=== PATIENT | female | born 1960 | race Caucasian/White ===

== ENCOUNTER 2017-08-07 17:02 | Emergency (ER) | payer OTHER, SELFPAY ==
[2017-08-07] MEDS ORDERED: Tobramycin Sulfate 0.3% Ophth Susp 5 ml Bottle ONE (18:02)
[2017-08-07] MEDS ORDERED: Proparacaine 0.5% Opth 15 ML BOT ONE (18:03)
== END 2017-08-07 18:16 | disposition home or self-care (01) ==
LOC: MADERS 17:02
DX: T15.01XA Foreign body in cornea, right eye, initial encounter (principal); H11.31 Conjunctival hemorrhage, right eye; J44.9 Chronic obstructive pulmonary disease, unspecified; I10 Essential (primary) hypertension; Z87.891 Personal history of nicotine dependence; Z86.73 Personal history of transient ischemic attack (TIA), and cerebral infarction without residual deficits; Z79.899 Other long term (current) drug therapy
CPT/HCPCS: 99283

== ENCOUNTER 2017-09-11 15:09 | Emergency (ER) | payer SELFPAY ==
[2017-09-11 16:27] LABS: #Eosinphils 0.2 thou/uL (0.0-0.7); #Lymphocytes 0.8 thou/uL (1.20-3.40); #Monocytes 0.3 thou/uL (0.11-0.59); #Neutrophils 2.2 thou/uL (1.40-6.50); %Basophils 0.9 % (0.0-1.0); %Eosinophils 4.9 % (0.0-10.0); %Monocytes 8.9 % (0.0-10.0); %Neutrophils 62.3 % (42.0-75.0); Hemoglobin 13.1 g/dL (12.0-16.0); Mean Corpuscular HGB CONC 33.8 g/dL (32.0-36.0); Mean Corpuscular Hemoglobin 30.2 pg (27.0-31.0); Mean Corpuscular Volume 89.3 fl (81.0-99.0); Platelet Count 145 thou/uL (130-400); RBC Distribution Width 11.8 % (11.5-14.5); Red Blood Cell (RBC) Count 4.33 mill/uL (4.20-5.40); White Blood Cell (WBC) Count 3.6 thou/uL (4.8-10.8)
[2017-09-11 16:41] LABS: ALT (SGPT) 26 U/L (8-55); AST (SGOT) 21 U/L (5-34); Albumin 3.5 g/dL (3.5-5.0); Alkaline Phosphatase 109 U/L (40-150); Anion Gap 14 mmol/L (10-20); BUN (Urea Nitrogen) 17 mg/dL (9.8-20.1); Bilirubin, Total 0.5 mg/dL (0.2-1.2); Calc. Creatinine Clearance 0 mL/min (70-130); Calcium 9.1 mg/dL (7.8-10.44); Carbon Dioxide 28 mmol/L (22-29); Chloride 106 mmol/L (98-107); Estimated GFR-MDRD 65; Globulin 3.4 g/dL (2.4-3.5); Glucose 93 mg/dL (70-105); Potassium 3.6 mmol/L (3.5-5.1); Protein, Total 6.9 g/dL (6.0-8.3); Sodium 144 mmol/L (136-145)
[2017-09-11] MEDS ORDERED: Acetaminophen 500 MG TAB ONE (17:29)
--- NOTE | 2017-09-11 17:39 | RAD ---
CHEST TWO VIEWS 09/11/17 HISTORY: Chest pain. FINDINGS: The cardiac silhouette and pulmonary vasculature are unremarkable. Mediastinum is midline. There is n o confluent air space consolidation, pneumothorax or pleural fluid apparent. IMPRESSION: No active cardiopulmonary abnormalities are demonstrated. POS: [facility]
[2017-09-11] MEDS ORDERED: Oseltamivir 75 MG CAP ONE (17:48)
[2017-09-11] MEDS ORDERED: cefTRIAXone\\ROCEPHIN 1 GM VIAL ONE (17:48)
[2017-09-11] MEDS ORDERED: Ibuprofen 800 MG TAB ONE (17:48)
[2017-09-11] MEDS ORDERED: Lidocaine 1% 20 ML MDV ONE (17:48)
[2017-09-11] MEDS ORDERED: Benzonatate 100 MG CAP ONE (17:48)
== END 2017-09-11 18:00 | disposition home or self-care (01) ==
LOC: MADERS 15:09
DX: J44.1 Chronic obstructive pulmonary disease with (acute) exacerbation (principal); J10.1 Influenza due to other identified influenza virus with other respiratory manifestations; I10 Essential (primary) hypertension; F17.210 Nicotine dependence, cigarettes, uncomplicated; Z86.73 Personal history of transient ischemic attack (TIA), and cerebral infarction without residual deficits; Z79.899 Other long term (current) drug therapy
CPT/HCPCS: 36415; 71020; 80053; 85025; 96372; J0696; J2001; J7620

== ENCOUNTER 2020-01-05 21:12 | Emergency (ER) | payer MEDICARE, MEDICAID ==
[~2020-01-05 21:12] MED LIST: Iopamidol 370 76% 125 ML VIAL FS ONE; Sodium Chloride 0.9% 100 ML BAG ONE
--- NOTE | 2020-01-05 21:37 | RAD ---
EXAM: Single view of the chest HISTORY: Chest pain COMPARISON: 07/23/2016 FINDINGS: Single view of the chest shows a normal sized cardiomediastinal silhouette. Atheroscleroti c calcifications are seen in the aorta. There is no evidence of consolidation, mass, or pleural effusion. The bones are unremarkable. IMPRESSION: No evidence of acute cardiopulmonary disease
[2020-01-05 21:43] LABS: #Eosinphils 0.2 thou/uL (0.0-0.7); #Lymphocytes 1.9 thou/uL (1.20-3.40); #Monocytes 0.3 thou/uL (0.11-0.59); #Neutrophils 4.5 thou/uL (1.40-6.50); %Basophils 0.5 % (0.0-1.0); %Eosinophils 3.4 % (0.0-10.0); %Monocytes 4.9 % (0.0-10.0); %Neutrophils 64.2 % (42.0-75.0); Hemoglobin 14.9 g/dL (12.0-16.0); Mean Corpuscular HGB CONC 32.8 g/dL (32.0-36.0); Mean Corpuscular Hemoglobin 29.7 pg (27.0-31.0); Mean Corpuscular Volume 90.3 fL (78.0-98.0); Mean Platelet Volume 10.5 fL (7.4-10.4); Platelet Count 148 thou/uL (130-400); RBC Distribution Width 11.4 % (11.5-14.5); Red Blood Cell (RBC) Count 5.04 mill/uL (4.20-5.40); White Blood Cell (WBC) Count 6.9 thou/uL (4.8-10.8)
[2020-01-05 21:58] LABS: ALT (SGPT) 29 U/L (8-55); AST (SGOT) 13 U/L (5-34); Alkaline Phosphatase 111 U/L (40-110); Anion Gap 16 mmol/L (10-20); BUN (Urea Nitrogen) 18 mg/dL (9.8-20.1); Bilirubin, Total 0.5 mg/dL (0.2-1.2); Calc. Creatinine Clearance 0 mL/min (70-130); Calcium 9.5 mg/dL (7.8-10.44); Carbon Dioxide 25 mmol/L (22-29); Chloride 105 mmol/L (98-107); Estimated GFR-MDRD 63; Globulin 3.4 g/dL (2.4-3.5); Glucose 83 mg/dL (70-105); Lipase 8 U/L (8-78); Potassium 3.3 mmol/L (3.5-5.1); Protein, Total 7.4 g/dL (6.0-8.3); Sodium 143 mmol/L (136-145)
--- NOTE | 2020-01-05 23:37 | CT ---
EXAM: CTA of the chest HISTORY: Chest pain COMPARISON: None TECHNIQUE: Multiple contiguous axial images were obtained a CTA of the chest with contrast per pulmon erica embolism protocol. 3-D oblique MIP reformats and direct coronal reformats were performed. FINDINGS: HEART: Normal in size without focal cardiac abnormality. PULMONARY ARTERIES: Normal in caliber without filling defects to suggest pulmonary emboli. MEDIASTINUM: No hilar or mediastinal lymphadenopathy. LUNGS: No focal infiltrates or masses. PLEURAL SPACE: No pleural effusion or pneumothorax. CHEST WALL SOFT TISSUES: Unremarkable VISUALIZED OSSEOUS STRUCTURES: Degenerative changes are seen in the spine. VISUALIZED SUBDIAPHRAGMATIC STRUCTURES: Status post cholecystectomy. There is hyperplasia of the left adrenal gland with a 2.2 cm left adrenal mass. Atherosclerotic calcifications in the aorta. Calcified granulomas in the spleen. IMPRESSION: 1. No evidence of pulmonary thromboembolism 2. Left adrenal mass
== END 2020-01-06 02:16 | disposition short-term general hospital (02) ==
LOC: MADERS 21:12
DX: R07.9 Chest pain, unspecified (principal); J44.9 Chronic obstructive pulmonary disease, unspecified; I10 Essential (primary) hypertension; Z86.73 Personal history of transient ischemic attack (TIA), and cerebral infarction without residual deficits; Z87.891 Personal history of nicotine dependence
CPT/HCPCS: 71045; 71275; 80053; 83690; 83880; 84484; 85025; 85379; 93005; J3490; Q9967

== ENCOUNTER 2020-06-17 14:55 | Outpatient (CLI) | payer MEDICARE, MEDICAID ==
[~2020-06-17 14:55] MED LIST changes: +Iopamidol 370 76% 100 ML VIAL ONE; -Iopamidol 370 76% 125 ML VIAL FS ONE; -Sodium Chloride 0.9% 100 ML BAG ONE
--- NOTE | 2020-06-17 16:15 | CT ---
CT OF THE ABDOMEN WITH AND WITHOUT CONTRAST: 06/17/20 INDICATIONS: Left adrenal mass. COMPARISON: Prior CT of the abdomen and pelvis dated 12/19/13. FINDINGS: There is a 1.8 cm oval mass lesion off the lateral limb of the left adrenal gland on image 20 of seri es 2 that has a precontrast Hounsfield characteristics of -0.910. The internal Hounsfield unit at the 60 second delay was 63.7 Hounsfield units. The delayed phase images, the mean internal density was 1 1.3 Hounsfield units. The absolute washout was 81.1%. the relative washout was 82.3%. The gallbladder is surgically absent. There are calcified granuloma within the spleen. The right adre nal gland is normal appearing. The pancreas appears within normal limits. No free fluid or enlarged l ymph nodes are evident. There are moderate calcifications involving the abdominal aorta. The visualiz ed small and large bowel are unremarkable appearing. There is mild scattered degenerative and osteoar thritic change. IMPRESSION: 1. Precontrast Hounsfield unit of below 10 with absolute washout of 60% or higher and a relative washout of 40% or higher is consistent with an adenoma. 2. Cholecystectomy. 3. Findings of prior granulomatous disease. 4. Moderate calcifications of the abdominal aorta. POS: [facility]
== END 2020-06-17 14:56 | disposition home or self-care (01) ==
LOC: MADRAD 14:55
PROVIDERS: ATTEND Family Medicine
DX: E27.8 Other specified disorders of adrenal gland (principal); I70.0 Atherosclerosis of aorta; Z90.49 Acquired absence of other specified parts of digestive tract
CPT/HCPCS: 74170; Q9967

== ENCOUNTER 2020-10-23 18:58 | Emergency (ER) | payer MEDICARE, MEDICAID ==
[2020-10-23 19:46] LABS: Bilirubin Negative (Negative); Blood, Urine Trace (Negative); Clarity Hazy (Clear); Glucose, Urine (Dipstick) Negative (Negative); Ketone, Urine Negative (Negative); Leukocyte Negative (Negative); Nitrite Negative (Negative); Protein, Urine (Dipstick) Negative (Neg-Trace); Specific Gravity, Urine 1.025 (1.005-1.030); pH, Urine 6.5 (5.0-9.0)
[2020-10-23 19:52] LABS: Bacteria/HPF Rare-Few HPF (None Seen); RBC/HPF 0-3 HPF (0-3); Squamous Epithelial 0-3 HPF (0-3)
[2020-10-23] MEDS ORDERED: Lidocaine 2% 20 ml MDV ONE (20:09)
[2020-10-23] MEDS ORDERED: cefTRIAXone\\ROCEPHIN 1 GM VIAL ONE (20:09)
== END 2020-10-23 20:45 | disposition home or self-care (01) ==
LOC: MADERS 18:58
DX: N39.0 Urinary tract infection, site not specified (principal); J44.9 Chronic obstructive pulmonary disease, unspecified; I10 Essential (primary) hypertension; Z86.73 Personal history of transient ischemic attack (TIA), and cerebral infarction without residual deficits; F17.210 Nicotine dependence, cigarettes, uncomplicated; Z79.899 Other long term (current) drug therapy
CPT/HCPCS: 81003; 81015; 87077; 87086; 87186; 96372; 99406; J0696

== ENCOUNTER 2021-03-27 10:28 | Emergency (ER) | payer MEDICAID, MEDICARE ==
[2021-03-27] MEDS ORDERED: Ketorolac Tromethamine 30 MG/ML VIAL ONE (11:17)
== END 2021-03-27 11:26 | disposition home or self-care (01) ==
LOC: MADERS 10:28
DX: K08.89 Other specified disorders of teeth and supporting structures (principal); K02.9 Dental caries, unspecified; E78.5 Hyperlipidemia, unspecified; E78.00 Pure hypercholesterolemia, unspecified; J44.9 Chronic obstructive pulmonary disease, unspecified; Z86.73 Personal history of transient ischemic attack (TIA), and cerebral infarction without residual deficits; F17.210 Nicotine dependence, cigarettes, uncomplicated
CPT/HCPCS: 96372; 99282; J1885

== ENCOUNTER 2022-07-11 09:34 | Emergency (ER) | payer MEDICARE, MEDICAID ==
[2022-07-11] MEDS ORDERED: Ibuprofen 600 MG TAB ONE (10:50)
== END 2022-07-11 10:51 | disposition home or self-care (01) ==
LOC: MADERS 09:34
DX: K04.4 Acute apical periodontitis of pulpal origin (principal); K02.9 Dental caries, unspecified; I10 Essential (primary) hypertension; E78.00 Pure hypercholesterolemia, unspecified; J44.9 Chronic obstructive pulmonary disease, unspecified; F17.210 Nicotine dependence, cigarettes, uncomplicated; Z86.73 Personal history of transient ischemic attack (TIA), and cerebral infarction without residual deficits; Z79.899 Other long term (current) drug therapy
CPT/HCPCS: 99282

== ENCOUNTER 2022-11-08 18:58 | Emergency (ER) | payer MEDICARE, MEDICAID ==
[2022-11-08] MEDS ORDERED: Lidocaine 1% (PF) 30 ML VIAL ONE (20:47)
== END 2022-11-08 21:10 | disposition home or self-care (01) ==
LOC: MADERS 18:58
DX: L03.031 Cellulitis of right toe (principal); E78.00 Pure hypercholesterolemia, unspecified; F17.210 Nicotine dependence, cigarettes, uncomplicated; Z79.899 Other long term (current) drug therapy
CPT/HCPCS: 11765; J2001

== ENCOUNTER 2023-06-26 16:36 | Emergency (ER) | payer MEDICARE, MEDICAID | END 2023-06-26 18:00 | disposition home or self-care (01) | LOC: MADERS 16:36 | DX: L72.3 Sebaceous cyst (principal); L30.4 Erythema intertrigo; Z86.73 Personal history of transient ischemic attack (TIA), and cerebral infarction without residual deficits; E78.00 Pure hypercholesterolemia, unspecified; J44.9 Chronic obstructive pulmonary disease, unspecified; I10 Essential (primary) hypertension; F17.210 Nicotine dependence, cigarettes, uncomplicated; Z79.899 Other long term (current) drug therapy | CPT/HCPCS: 99282 ==